=== PATIENT | male | born 1980 | race Caucasian/White ===

== ENCOUNTER 2018-10-29 13:12 | Emergency (ER) | payer BC ==
[~2018-10-29 13:12] MED LIST: Iopamidol 370 76% 100 ML VIAL ONE
[2018-10-29] MEDS ORDERED: Ondansetron PF 4 MG/2 ML Vial ONE (13:28)
[2018-10-29] MEDS ORDERED: Morphine 4 MG/ML VIAL ONE (13:28)
[2018-10-29] MEDS ORDERED: Ketorolac Tromethamine 30 MG/ML VIAL ONE (13:28)
[2018-10-29 13:40] LABS: #Basophils 0.1 thou/uL (0.0-0.2); #Lymphocytes 1.7 thou/uL (1.20-3.40); #Monocytes 0.6 thou/uL (0.11-0.59); #Neutrophils 8.9 thou/uL (1.40-6.50); %Basophils 0.9 % (0.0-1.0); %Eosinophils 0.4 % (0.0-10.0); %Lymphocytes 14.9 % (21.0-51.0); %Monocytes 5.6 % (0.0-10.0); %Neutrophils 78.2 % (42.0-75.0); Hemoglobin 17.1 g/dL (14.0-18.0); Mean Corpuscular HGB CONC 31.4 g/dL (32.0-36.0); Mean Corpuscular Hemoglobin 29.1 pg (27.0-31.0); Mean Corpuscular Volume 92.6 fL (78.0-98.0); Mean Platelet Volume 8.7 fL (7.4-10.4); Platelet Count 218 thou/uL (130-400); RBC Distribution Width 11.3 % (11.5-14.5); White Blood Cell (WBC) Count 11.3 thou/uL (4.8-10.8)
[2018-10-29 13:56] LABS: ALT (SGPT) 61 U/L (8-55); AST (SGOT) 39 U/L (5-34); Albumin 4.6 g/dL (3.5-5.0); Alkaline Phosphatase 42 U/L (40-150); Anion Gap 16 mmol/L (10-20); BUN (Urea Nitrogen) 11 mg/dL (8.9-20.6); Bilirubin, Total 0.7 mg/dL (0.2-1.2); Calc. Creatinine Clearance 0 mL/min (70-130); Calcium 10.3 mg/dL (7.8-10.44); Carbon Dioxide 26 mmol/L (22-29); Chloride 102 mmol/L (98-107); Estimated GFR-MDRD 82; Globulin 3.7 g/dL (2.4-3.5); Glucose 109 mg/dL (70-105); Lipase 131 U/L (8-78); Protein, Total 8.3 g/dL (6.0-8.3); Sodium 140 mmol/L (136-145)
--- NOTE | 2018-10-29 16:24 | CT ---
CT ABDOMEN AND PELVIS WITH IV CONTRAST: 10/29/18 HISTORY: Epigastric abdominal pain with nausea. COMPARISON: None available. FINDINGS: The lung bases are clear. Post cholecystectomy changes are noted. There are two subcentimeter too small to characterize hypodense lesions in the left hepatic lobe with very tiny subcentimeter too small to characterize hypodense lesion in the right hepatic lobe which a re too small to characterize. Splenic granulomata are present. The pancreas, bilateral adrenal glands, kidneys, abdominal aorta, and urinary bladder demonstrate a normal CT appearance. There are dilated loops of ileum with fluid filled dilated loops of ileum present which terminate in loops of ileum which demonstrate fecalization. Loops of bowel measuring up to 4 cm in diameter. The j ejunum is normal in caliber and the more distal ileum is also normal in caliber. There is free fluid and inflammatory stranding adjacent to the dilated loops of small bowel with a small amount of free i n the pelvis. Surgical clips are seen in the pelvis. There is no fluid collection or lymphadenopathy seen. IMPRESSION: 1. Dilated loops of small bowel with fecalization of loops of ileum. Loops of bowel proximal to the area of fecalization are dilated and fluid filled. There is free fluid within the abdomen adjacen t to these loops of bowel. Findings are suggestive of a small bowel obstruction which may be related to phytobezoar. The distal ileum as well as jejunal small bowel loops are normal in caliber. 2. No CT evidence of appendicitis. 3. Post cholecystectomy changes. 4. Subcentimeter too small to characterize hypodense lesion in the liver. 5. Above findings discussed with Dr. Graham in the Emergency Department on 10/29/18 at [address] POS: [facility]
== END 2018-10-29 16:01 | disposition left against medical advice (07) ==
LOC: SCSER 13:12
DX: K56.609 Unspecified intestinal obstruction, unspecified as to partial versus complete obstruction (principal); K85.90 Acute pancreatitis without necrosis or infection, unspecified; F17.210 Nicotine dependence, cigarettes, uncomplicated; Z79.899 Other long term (current) drug therapy
CPT/HCPCS: 74177; 80053; 83690; 85025; 96361; 96374; 96375; J1885; J2270; J2405